=== PATIENT | female | born 1975 | race Caucasian/White ===

== ENCOUNTER 2021-02-16 16:05 | Emergency (ER) | payer OTHER ==
[~2021-02-16] VITALS: Ht 167.6 cm; Wt 68.0 kg
--- OUTSIDE RECORDS SUMMARY | 2021-02-16 16:12 | XMS ---
PreManage Notification: ALEX OLIVO Security Certified Medical Asst Events No recent Security Events currently on file CRITERIA MET - [facility] - 2 Visits in 30 Days - [facility] - 3 Facilities in 90 Days CARE PROVIDERS PARAS DAVIS [facility] PHONE: [phone] ROSIBEL MIR Nurse Practitioner Current PHONE: [phone] Care Guidelines exist for the following facilities: [facility] ( 04/15/2015 ) Niharika VISIT COUNT (12 MO.) 1 Bernard HPati 3 [facility] [address] [facility] 2 [facility] 2 [facility] JOSHUA Michaud TOTAL 12 NOTE: Visits indicate total known visits. ED/UCC VISIT TRACKING (12 MO.) 02/16/2021 16:06 [facility] [place] TYPE: Emergency COMPLAINT: - VAGINAL BLEEDING, FEELING WEAK, VAGINAL PAIN 02/07/2021 07:01 Aiden [facility] TYPE: Emergency DIAGNOSES: - Alcohol dependence with withdrawal, uncomplicated - Alcohol Problem - ALCOHOL DETOX 12/24/2020 12:35 Aiden [facility] TYPE: Emergency DIAGNOSES: - ALCOHOL DEPENDENCY - Alcohol dependence with withdrawal, uncomplicated - Alcohol Problem 12/10/2020 16:19 Bernard [facility] TYPE: Emergency DIAGNOSES: - Dental caries, unspecified - Tobacco use - Cellulitis and abscess of mouth - Fracture of tooth (traumatic), initial encounter for closed fracture 11/17/2020 14:48 [facility] TYPE: Emergency DIAGNOSES: - Noninfective gastroenteritis and colitis, unspecified - Alcohol abuse, uncomplicated 08/01/2020 02:16 [facility] TYPE: Emergency DIAGNOSES: - Nausea - Nausea - Poisoning by unspecified narcotics, accidental (unintentional), initial encounter - Drug Overdose - Hypocalcemia - Alcohol dependence with withdrawal, uncomplicated - Pleurodynia - Alcohol abuse, uncomplicated 07/10/2020 22:37 [facility] TYPE: Emergency DIAGNOSES: - Contusion of right front wall of thorax, initial encounter 06/03/2020 08:40 [facility] TYPE: Emergency DIAGNOSES: - Alcohol dependence with withdrawal, uncomplicated - Alcohol Intoxication 05/06/2020 06:34 [facility] TYPE: Emergency DIAGNOSES: - Alcohol use, unspecified with intoxication, unspecified - Alcohol dependence, uncomplicated - Abdominal Pain - Right lower quadrant pain - Acidosis 04/14/2020 13:50 [facility] Tamir [facility] TYPE: Emergency DIAGNOSES: - alcohol withdrawals - Alcohol dependence with withdrawal, uncomplicated - Hypokalemia - Withdrawal (Alcohol) - Elevated blood-pressure reading, without diagnosis of hypertension 03/12/2020 14:48 [facility] Paul [facility] TYPE: Emergency DIAGNOSES: - fall, leg injury - Alcohol Problem - Fall - Abrasion, right knee, initial encounter - fall, leg injury,alcohol problem - Alcohol abuse, uncomplicated 03/03/2020 07:37 [facility] Tamir [facility] TYPE: Emergency DIAGNOSES: - Alcohol abuse, uncomplicated - Alcohol Problem - alcohol detox INPATIENT VISIT TRACKING (12 MO.) No inpatient visits to display in this time frame [email or web address]
[2021-02-16] MEDS ORDERED: TRANEXAMIC ACI650 MG PO (20:15)
[2021-02-16] MEDS ORDERED: HYDROCODON-ACE1 EA11 PO (20:15)
== END 2021-02-16 20:28 | disposition home or self-care (01) ==
LOC: ED 16:05
DX: N93.8 Other specified abnormal uterine and vaginal bleeding (principal); Z88.0 Allergy status to penicillin; Z88.5 Allergy status to narcotic agent
CPT/HCPCS: 76830; 76856; 80048; 81001; 84703; 85025; 86900; 96374; 96375; 96376; 99284-25; A9270; J1170; J1885